=== PATIENT | male | born 1940 | race Caucasian/White ===

== ENCOUNTER 2018-08-15 19:34 | Inpatient (IN) | payer OTHER ==
[~2018-08-15] VITALS: Ht 162.6 cm; Wt 78.5 kg
[2018-08-15 20:40] VITALS: BP 162/83; PULSE 70; RESP 18
--- NOTE | 2018-08-15 21:43 | HP ---
Date/Time of Note Date/Time of Note DATE: 08/15/18 TIME: 21:43 Assessment/Plan VTE Prophylaxis SCD applied (from Nsg): Yes Pharmacological prophylaxis: NA/contraindicated Pharm contraindication: low risk/ambulating Assessment/Plan Hospital Course This is a 78-year-old male being admitted to the telemetry floor for: #1 headache with unsteady gait: Patient CT imaging studies are negative for any acute abnormalities. Patient unfortunately is unable to get an MRI as he does have a pacemaker. At the current time he does report improvement in his headache. He does report mild dizziness still. Gait was not assessed as patient reports that he is tired. Will get a PT evaluation. Will obtain a carotid Doppler ultrasound as well as echocardiogram, chest x-ray. Will check orthostatics. Will check hemoglobin A1c, lipid panel, TSH. Cranial nerves II through XII intact, speech normal. Will consult neurology . Tylmary beth for headache. #2 musculoskeletal pain: Patient does report pain of his neck muscles/trapezius. We will give him a dose of Toradol 50 mg IV x1. #3 hypertension: Patient does not recall a blood pressure medication he is at home. I will start him on lisinopril 10 mg p.o. daily. Will monitor patient's blood pressure. #4 borderline obesity: We will check hemoglobin A1c, lipid panel, TSH #5 DVT GI prophylaxis: SCDs, no GI prophylaxis indicated Further treatment strategy will be implemented as per the clinical course. HPI/ROS Admit Date/Time Admit Date/Time Aug 15, 2018 at 20:20 Hx of Present Illness Chief complaint: Dizziness, headache Patient is a poor historian. This is a 78-year-old male with a past medical history of diabetes mellitus and hypertension who originally presented to [facility] with complaints of headache and dizziness. He had originally reported that 2 days prior to presentation at [place] he had experienced a headache that was sudden onset in nature is nontraumatic and it was in the occipital region of his head. He reported the pain was throbbing and constant and he rated as a 9 out of 10. He has continued to have dizziness and feeling unsteady on his feet. He denies any nausea vomiting or diarrhea. Pertinent vitals on presentation: Temperature 97.8/pulse 70/respirations 24/blood pressure 161/91/SPO2 98% on room air. Please see chart for further laboratory results. Upon arriving to [facility] patient reports that his headache is improved. He does still feel some dizziness. Pertinent laboratory findings from transfer facility include creatinine of 1.19 please see chart for further details. CT angiogram of the neck with contrast which showed bilateral carotid arteries of normal caliber. Normal carotid bifurcation to demonstrate bilateral. Bilateral internal carotid arteries are of normal,. No hemodynamically significant stenosis using the NASCET criteria. CT head without contrast: No evidence of acute intracranial abnormality. No evidence of hemorrhage, mass, or mass-effect. Mild generalized central and cortical atrophy. Areas of hypoattenuation in the periventricular and deep white matter suggestive of chronic small vessel ischemic change. Small posterior fossa cystic attenuation likely a cyst and stable examination measuring [address] angiogram head with contrast: No acute intracranial abnormality. Patient is EKG was normal sinus rhythm atrially paced at 70 bpm. ROS Const: As per HPI Eyes : No pain discharge or redness or change in visual acuity ENT: No pain, sore throat, congestion, congestion, dysphagia or discharge Respiratory: No shortness of breath, cough, sputum, wheezing, or pleuritic pain Cardiovascular: No chest pain, palpitation, PND, or edema GI : no change in appetite, abdominal pain, nausea, vomiting, diarrhea, co nstipation, or change in the color his stool Genitourinary: No dysuria, hematuria, flank pain , discharge or CVA tenderness Musculoskeletal: No joint pain, back pain, neck pain, restricted range of motion in neck or joints Skin: No rash, bruising or hives Neuro: As per HPI Endocrine: No polyuria, polydipsia, temperature intolerance Psych: No hallucination, depression, anxiety or suicidal ideation PMH/Family/Social Past Medical History Hypertension Medications Current Medications IV Flush (NS 3 ml) 3 ml PER PROTOCOL IV ; Start 08/15/18 at 22:00; Status UNV Ondansetron HCl (Zofran Inj) 4 mg Q6H PRN IV NAUSEA/VOMITING; Start 08/15/18 at 22:00; Status UNV Acetaminophen (Tylenol Tab) 650 mg Q6H PRN PO .PAIN 1-3 OR TEMP; Start 08/15/18 at 22:00; Status UNV Docusate Sodium (Colace) 100 mg Q12H PRN PO .CONSTIPATION; Start 08/15/18 at 22:00; Status UNV Bisacodyl (Dulcolax) 5 mg DAILY PRN PO .CONSTIPATION; Start 08/15/18 at 22:00; Status UNV Coded Allergies: No Known Allergy (Unverified , 08/15/18) Past Surgical History Pacemaker placement Family History Significant Family History: no pertinent family hx Social History Alcohol Use: occasionally Smoking Status: Never smoker Drug Use: none Exam/Review of Systems Exam Exam General: Patient is a pleasant male currently lying in bed in no acute distress HEENT: Atraumatic, normocephalic. The pupils are equal, round and reactive. Extraocular motor are intact Neck: Supple with full range of motion. No rigidity or meningismus Chest: Nontender to palpation Lungs: Clear to auscultation bilaterally no crackles rales or wheezing Heart: Normal S1-S2, Regular rhythm and rate. No murmur, S3, or S4 Abdomen: Soft , nontender, nondistended , bowel sounds are present. No guarding no rebound tenderness , No masses or organomegaly. No costovertebral temporal angle mass Extremities: Normal to inspection, no edema no cyanosis Musculoskeletal: Tender to palpation along the trapezius muscles Neurologic: Normal mental status, speech normal, cranial nerves II through XII are intact, motor and sensory are intact, gait not assessed as patient reports that he is tired. SUNNI RAMOS Aug 15, 2018 21:43
[2018-08-15] MEDS ORDERED: DOCUSATE SODIUM 100 MG CAP PO PRN (22:00)
[2018-08-15] MEDS ORDERED: NACL 0.9% 3 ML SYG IV SCH (22:00)
[2018-08-15] MEDS ORDERED: BISACODYL (EC) 5 MG TAB PO PRN (22:00)
[2018-08-15] MEDS ORDERED: ONDANSETRON 4 MG INJ IV PRN (22:00)
[2018-08-16] VITALS (7 sets, daily range): BP systolic 133–175; BP diastolic 71–83; PULSE 40–71; RESP 17–18; Ht 162.6 cm; Wt 78.5 kg
[2018-08-16] MEDS ORDERED: MAGNESIUM SULFATE 2 GM/50 ML 50 ML IVPB ONE ×2 (03:30→14:30)
[2018-08-16] MEDS ORDERED: KETOROLAC 15 MG INJ IV STA (04:32)
[2018-08-16] MEDS ORDERED: LISINOPRIL 10 MG TAB PO SCH (09:00)
[2018-08-16] MEDS ORDERED: ATOR20TA38 PO (10:26)
[2018-08-16] MEDS ORDERED: ATEN50TA PO (10:29)
[2018-08-16] MEDS ORDERED: BENA20TA4 PO (10:29)
[2018-08-16] MEDS ORDERED: GLIM4TAB55 PO (10:29)
[2018-08-16] MEDS ORDERED: METF100010 PO (10:29)
[2018-08-16] MEDS ORDERED: LANT3I SC (10:30)
--- NOTE | 2018-08-16 13:18 | CONSI ---
Assessment/Plan Assessment/Plan Assessment/Plan (Recall) 78 M c/ cerebrovascular risk factors, who presents for evaluation of headache and dizziness.. The clinical picture is most ominously concerning for posterior circulation stroke.. Basilar migraine is possible... Hypertensive urgency is additionally considered.. OSH Head CT was reportedly without obvious acute intracranial pathology OSH CTA Head and Neck were reportedly normal MRI brain is contraindicated 2/2 pacemaker P: Repeat head CT in the evening to eval for interval change Await echocardiogram Start asa/lipitor daily for now Add ESR, RPR Add meclizine Other medical management per primary (avoid Triptans, Ergotamines) PT/OT/ST as necessary Will follow clinically Consultation Date/Type/Reason Admit Date/Time Aug 15, 2018 at 20:20 Type of Consult Neurology Reason for Consultation dizziness, headache Requesting Provider: SUNNI RAMOS Date/Time of Note DATE: 08/16/18 TIME: 13:09 Hx of Present Illness This is a 78-year-old male with a past medical history of diabetes mellitus and hypertension who originally presented to [facility] with complaints of headache and dizziness. He had originally reported that 2 days prior to presentation at [place] he had experienced a headache that was sudden onset in nature is nontraumatic and it was in the occipital region of his head. He reported the pain was throbbing and constant and he rated as a 9 out of 10. He has continued to have dizziness and feeling unsteady on his feet. He denies any nausea vomiting or diarrhea. Pertinent vitals on presentation: Temperature 97.8/pulse 70/respirations 24/blood pressure 161/91/SPO2 98% on room air. Please see chart for further laboratory results. Upon arriving to [facility] patient reports that his headache is improved. He does still feel some dizziness. Pertinent laboratory findings from transfer facility include creatinine of 1.19 please see chart for further details. CT angiogram of the neck with contrast which showed bilateral carotid arteries of normal caliber. Normal carotid bifurcation to demonstrate bilateral. Bilateral internal carotid arteries are of normal,. No hemodynamically significant stenosis using the NASCET criteria. CT head without contrast: No evidence of acute intracranial abnormality. No evidence of hemorrhage, mass, or mass-effect. Mild generalized central and cortical atrophy. Areas of hypoattenuation in the periventricular and deep white matter suggestive of chronic small vessel ischemic change. Small posterior fossa cystic attenuation likely a cyst and stable examination measuring [address] angiogram head with contrast: No acute intracranial abnormality. Patient is EKG was normal sinus rhythm atrially paced at 70 bpm. o/w neg Objective Exam Vitals Vital Signs Date Temp Pulse Resp B/P (MAP) Pulse Ox O2 O2 Flow FiO2 Time Delivery Rate 08/16/18 70 175/83 11:36 (113) 156/80 (105) 08/16/18 98.0 17 92 11:25 Intake and Output 08/15/18 08/15/18 08/16/18 1515:00 23:00 07:00 OutputOutput Total 200 ml 450 ml BalanceBalance -200 ml -450 ml Exam PE: Gen Appearance: No Apparent Distress HEENT: Normocephalic Cardiovascular: Regular rate Lungs: Clear bilaterally Abdomen: Soft Extremities: Dry NE: The patient was alert and oriented. Language was normal. Fund of knowledge was normal. Pupils were equal and reactive to light. There was no afferent pupillary defect. Visual landis were normal. Funduscopic examination was limited. Extra-ocular movements were full. Ptosis was absent. There was no nystagmus. Facial sensation was normal. Face was symmetric with normal strength. Hearing was intact. Palate movements were normal. Neck strength was normal. There was normal tongue bulk and speed of movement. Tone was normal. Muscle bulk was normal. I did not see fasciculations. Arms and legs were strong. Vibration sensation was normal. Temperature and pinprick sensation was normal. Rapid alternating movements were normal. There was no dysmetria. There was no intention tremor. Gait was deferred due to bedrest. Arm and leg reflexes were symmetric. Duarte's sign was absent. Plantar responses were flexor. Results Result Diagram: 08/16/18 0526 08/16/18 05 Results 24hrs Laboratory Tests Test 08/15/18 22:32 08/16/18 05:26 08/16/18 11:47 White Blood Count 7.0 7.4 Red Blood Count 4.28 L 4.31 L Hemoglobin 13.6 L 13.5 L Hematocrit 39.4 L 40.1 L Mean Corpuscular Volume 92.1 93.0 Mean Corpuscular Hemoglobin 31.8 31.3 Mean Corpuscular Hemoglobin Concent 34.5 33.7 Red Cell Distribution Width 13.5 13.5 Platelet Count 255 245 Mean Platelet Volume 11.3 H 11.5 H Immature Granulocytes % 0.400 0.100 Neutrophils % 51.2 57.3 Lymphocytes % 31.6 27.5 Monocytes % 9.3 8.1 Eosinophils % 6.9 6.5 Basophils % 0.6 0.5 Nucleated Red Blood Cells % 0.0 0.0 Immature Granulocytes # 0.030 0.010 Neutrophils # 3.6 4.2 Lymphocytes # 2.2 2.0 Monocytes # 0.7 0.6 Eosinophils # 0.5 0.5 Basophils # 0.0 0.0 Nucleated Red Blood Cells # 0.0 0.0 Sodium Level 138 140 Potassium Level 4.0 4.3 Chloride Level 106 106 Carbon Dioxide Level 26 26 Anion Gap 6 8 Blood Urea Nitrogen 18 19 Creatinine 0.98 1.08 Est Glomerular Filtrat Rate mL/min Glucose Level 143 147 Calcium Level 8.4 8.5 Magnesium Level 1.6 L 1.5 L Total Bilirubin 0.8 1.0 Direct Bilirubin 0.00 0.00 Indirect Bilirubin 0.8 1.0 Aspartate Amino Transf (AST/SGOT) 28 33 Alanine Aminotransferase (ALT/SGPT) 23 27 Alkaline Phosphatase 97 96 Total Protein 6.5 6.6 Albumin 3.3 3.3 Globulin 3.20 3.30 H Albumin/Globulin Ratio 1.03 1.00 Hemoglobin A1c 7.9 H Triglycerides Level Pending Cholesterol Level 181 LDL Cholesterol, Calculated Pending HDL Cholesterol 28 L Cholesterol/HDL Ratio 6.4 Thyroid Stimulating Hormone (TSH) 2.390 Bedside Glucose 165 Past Medical History reviewed Home Meds Reported Medications Insulin Glargine* (Lantus*) 100 Unit/Ml Soln, 10 UNIT SC QHS, #1 VIAL 08/16/18 Benazepril Hcl* (Benazepril Hcl*) 20 Mg Tablet, 20 MG PO DAILY, #30 TAB 08/16/18 Metformin Hcl* (Metformin Hcl*) 1,000 Mg Tablet, 1000 MG PO WITH BREAKFAST DINNE, #30 TAB 08/16/18 Glimepiride* (Amaryl*) 4 Mg Tablet, 4 MG PO WITH BREAKFAST, TAB 08/16/18 Atenolol* (Atenolol*) 50 Mg Tablet, 50 MG PO DAILY, #30 TAB 08/16/18 Atorvastatin Calcium* (Atorvastatin Calcium*) 20 Mg Tablet, 20 MG PO QHS, #30 TAB 08/16/18 Medications Current Medications IV Flush (NS 3 ml) 3 ml PER PROTOCOL IV ; Start 08/15/18 at 22:00 Ondansetron HCl (Zofran Inj) 4 mg Q6H PRN IV NAUSEA/VOMITING; Start 08/15/18 at 22:00 Acetaminophen (Tylenol Tab) 650 mg Q6H PRN PO .PAIN 1-3 OR TEMP; Start 08/15/18 at 22:00 Docusate Sodium (Colace) 100 mg Q12H PRN PO .CONSTIPATION; Start 08/15/18 at 22:00 Bisacodyl (Dulcolax) 5 mg DAILY PRN PO .CONSTIPATION; Start 08/15/18 at 22:00 Lisinopril (Zestril) 10 mg DAILY PO Last administered on 08/16/18at 09:30; Admin Dose 10 MG; Start 08/16/18 at 09:00 Allergies: Coded Allergies: No Known Allergy (Unverified , 08/15/18) Social History Alcohol Use: occasionally Smoking Status: Never smoker Drug Use: none LAYO RODRIGUEZ Aug 16, 2018 13:18
[2018-08-16] MEDS: ASPIRIN (EC) 81 MG TAB PO SCH (13:44)
--- NOTE | 2018-08-16 14:16 | PN ---
Date/Time of Note Date/Time of Note DATE: 08/16/18 TIME: 14:15 Assessment/Plan VTE Prophylaxis Risk score (from Ns)>0 risk: 4 SCD applied (from Ns): Yes Pharmacological prophylaxis: NA/contraindicated Pharm contraindication: low risk/ambulating Lines/Catheters IV [facility]from [facility] Saline Lock Urinary Cath still in place: No Assessment/Plan Hospital Course SUBJECTIVE: Patient had dizziness with PT evaluation this morning. OBJECTIVE: Vital signs-see below PHYSICAL EXAM: Constitutional: Adequately built,not in acute distress. HEENT: Head atraumatic and normocephalic. Eyes: Extraocular muscles intact. Anicteric sclerae. Pupils equal bilaterally, reactive to light. NECK: Supple without lymph node. CHEST: Clear and good breath sounds equally. No wheezing. No rhonchi. HEART: S1, S2. Regular rate and rhythm. ABDOMEN: Soft/non tender with no rebound tenderness. Bowel sounds were present. EXTREMITIES: No cyanosis, clubbing or edema. NEUROLOGIC: Alert and oriented x3. No focal deficit. No sensory deficit. PSYCHOSOCIAL: No signs of depression. INTEGUMENTARY: No open wounds. ASSESSMENT AND PLAN:78 yo M w/htn,dm2 tx from osh for headaches/diz ziness/feeling unsteady.... Headache/dizziness -No focal deficits. -Patient is not a candidate for brain MRI secondary to pacemaker placed. Being followed by neurologist who suspect posterior circulation stroke versus basilar migraine versus hypertensive urgency... -Follow-up brain CT ordered. CTA head/neck from OSH unrevealing... -Continue ASA/statin -Continue PT HTN -Resume home medications DMII -A1c noted. Basal/bolus insulin Pacemaker placed -w/good fxn DVT prophylaxis: SCDs Disposition: Continue with physical therapy. Case management to arrange home health in front wheel walker. Follow-up neurology recommendations. Patient was seen in collaboration with Dr. Malone. Result Diagram: 08/16/1852508/16/18525 Results 24hrs Laboratory Tests Test 08/15/18 22:32 08/16/18 05:26 08/16/18 11:47 White Blood Count 7.0 7.4 Red Blood Count 4.28 L 4.31 L Hemoglobin 13.6 L 13.5 L Hematocrit 39.4 L 40.1 L Mean Corpuscular Volume 92.1 93.0 Mean Corpuscular Hemoglobin 31.8 31.3 Mean Corpuscular Hemoglobin Concent 34.5 33.7 Red Cell Distribution Width 13.5 13.5 Platelet Count 255 245 Mean Platelet Volume 11.3 H 11.5 H Immature Granulocytes % 0.400 0.100 Neutrophils % 51.2 57.3 Lymphocytes % 31.6 27.5 Monocytes % 9.3 8.1 Eosinophils % 6.9 6.5 Basophils % 0.6 0.5 Nucleated Red Blood Cells % 0.0 0.0 Immature Granulocytes # 0.030 0.010 Neutrophils # 3.6 4.2 Lymphocytes # 2.2 2.0 Monocytes # 0.7 0.6 Eosinophils # 0.5 0.5 Basophils # 0.0 0.0 Nucleated Red Blood Cells # 0.0 0.0 Sodium Level 138 140 Potassium Level 4.0 4.3 Chloride Level 106 106 Carbon Dioxide Level 26 26 Anion Gap 6 8 Blood Urea Nitrogen 18 19 Creatinine 0.98 1.08 Est Glomerular Filtrat Rate mL/min Glucose Level 143 147 Calcium Level 8.4 8.5 Magnesium Level 1.6 L 1.5 L Total Bilirubin 0.8 1.0 Direct Bilirubin 0.00 0.00 Indirect Bilirubin 0.8 1.0 Aspartate Amino Transf (AST/SGOT) 28 33 Alanine Aminotransferase (ALT/SGPT) 23 27 Alkaline Phosphatase 97 96 Total Protein 6.5 6.6 Albumin 3.3 3.3 Globulin 3.20 3.30 H Albumin/Globulin Ratio 1.03 1.00 Hemoglobin A1c 7.9 H Triglycerides Level Pending Cholesterol Level 181 LDL Cholesterol, Calculated Pending HDL Cholesterol 28 L Cholesterol/HDL Ratio 6.4 Thyroid Stimulating Hormone (TSH) 2.390 Bedside Glucose 165 Exam/Review of Systems Exam Vitals Vital Signs Date Temp Pulse Resp B/P (MAP) Pulse Ox O2 O2 Flow FiO2 Time Delivery Rate 08/16/18 70 175/83 11:36 (113) 156/80 (105) 08/16/18 98.0 17 92 11:25 Intake and Output 08/15/18 08/15/18 08/16/18 1515:00 23:00 07:00 OutputOutput Total 200 ml 450 ml BalanceBalance -200 ml -450 ml Results Results 24hrs Laboratory Tests Test 08/15/18 22:32 08/16/18 05:26 08/16/18 11:47 White Blood Count 7.0 7.4 Red Blood Count 4.28 L 4.31 L Hemoglobin 13.6 L 13.5 L Hematocrit 39.4 L 40.1 L Mean Corpuscular Volume 92.1 93.0 Mean Corpuscular Hemoglobin 31.8 31.3 Mean Corpuscular Hemoglobin Concent 34.5 33.7 Red Cell Distribution Width 13.5 13.5 Platelet Count 255 245 Mean Platelet Volume 11.3 H 11.5 H Immature Granulocytes % 0.400 0.100 Neutrophils % 51.2 57.3 Lymphocytes % 31.6 27.5 Monocytes % 9.3 8.1 Eosinophils % 6.9 6.5 Basophils % 0.6 0.5 Nucleated Red Blood Cells % 0.0 0.0 Immature Granulocytes # 0.030 0.010 Neutrophils # 3.6 4.2 Lymphocytes # 2.2 2.0 Monocytes # 0.7 0.6 Eosinophils # 0.5 0.5 Basophils # 0.0 0.0 Nucleated Red Blood Cells # 0.0 0.0 Sodium Level 138 140 Potassium Level 4.0 4.3 Chloride Level 106 106 Carbon Dioxide Level 26 26 Anion Gap 6 8 Blood Urea Nitrogen 18 19 Creatinine 0.98 1.08 Est Glomerular Filtrat Rate mL/min Glucose Level 143 147 Calcium Level 8.4 8.5 Magnesium Level 1.6 L 1.5 L Total Bilirubin 0.8 1.0 Direct Bilirubin 0.00 0.00 Indirect Bilirubin 0.8 1.0 Aspartate Amino Transf (AST/SGOT) 28 33 Alanine Aminotransferase (ALT/SGPT) 23 27 Alkaline Phosphatase 97 96 Total Protein 6.5 6.6 Albumin 3.3 3.3 Globulin 3.20 3.30 H Albumin/Globulin Ratio 1.03 1.00 Hemoglobin A1c 7.9 H Triglycerides Level Pending Cholesterol Level 181 LDL Cholesterol, Calculated Pending HDL Cholesterol 28 L Cholesterol/HDL Ratio 6.4 Thyroid Stimulating Hormone (TSH) 2.390 Bedside Glucose 165 Medications Medication Current Medications IV Flush (NS 3 ml) 3 ml PER PROTOCOL IV ; Start 08/15/18 at 22:00 Ondansetron HCl (Zofran Inj) 4 mg Q6H PRN IV NAUSEA/VOMITING; Start 08/15/18 at 22:00 Acetaminophen (Tylenol Tab) 650 mg Q6H PRN PO .PAIN 1-3 OR TEMP; Start 08/15/18 at 22:00 Docusate Sodium (Colace) 100 mg Q12H PRN PO .CONSTIPATION; Start 08/15/18 at 22:00 Bisacodyl (Dulcolax) 5 mg DAILY PRN PO .CONSTIPATION; Start 08/15/18 at 22:00 Aspirin (Halfprin) 81 mg DAILY PO Last administered on 08/16/18at 13:44; Admin Dose 81 MG; Start 08/16/18 at 13:30 Atorvastatin Calcium (Lipitor) 40 mg HS PO ; Start 08/16/18 at 21:00 Meclizine HCl (Antivert) 12.5 mg TID PO ; Start 08/16/18 at 21:00 Atenolol (Tenormin) 50 mg DAILY PO ; Start 08/17/18 at 09:00; Status UNV Benazepril HCl (Lotensin) 20 mg DAILY PO ; Start 08/17/18 at 09:00; Status UNV Insulin Glargine (Lantus) 10 units QHS SC ; Start 08/16/18 at 21:00; Status UNV WENDY CASTREJON NP Aug 16, 2018 14:16
--- NOTE | 2018-08-16 16:41 | RADRPT ---
Echocardiogram Report Patient Name: Speedy CONNER ID: [id number] : [id number] (78y 7m)Study Date: 08/16/2018 8:29:19 AM Gender: Greggcession #: [id number] Tech: Robin Cuevas [facility] Location: [facility] Ref.Physician: SUNNI RAMOS Height(Cm): BSA: Weight(Kg): Quality: Technically Difficult StudyOrder Physician: SUNNI ARMOS Account #: Procedures: Echocardiographic Report: Transthoracic echocardiogram with complete 2D, M-Mode, and doppler examination. Indications: NEAR SYNCOPE. Measurements: 2D/M Mode Doppler Measurement Value Normal Range Measurement Value Normal Range LVIDd 2D 4.6 [ 4.2 - 5.8 ] cm AV Peak Carson 1.4 [ 100.0 - 170.0 ] cm/sec LVIDs 2D 3.3 [ 2.5 - 4.0 ] cm AV Peak PG 7.0 [ 2.0 - 9.0 ] mmHg LVPWd 2D 1.0 [ 0.6 - 1.0 ] cm LVOT Peak Carson 0.9 [ 70.0 - 110.0 ] cm/sec IVSd 2D 1.1 [ 0.6 - 1.0 ] cm LVOT Peak PG 3.0 [ 2.0 - 6.0 ] mmHg AoR Diam 2D 3.0 [ 2.6 - 3.4 ] cm MV E Peak Carson 0.5 [ 60.0 - 130.0 ] cm/sec EDV 2D 95.4 [ 62.0 - 150.0 ] ml MV A Peak Carson 0.9 [ 100.0 - 120.0 ] cm/sec ESV 2D 45.1 [ 21.0 - 61.0 ] ml MV E/A 0.5 [ 0.8 - 1.5 ] ratio EF 2D 52.7 [ 52.0 - 72.0 ] percent MV Decel Time 211 [ 104 - 258 ] msec LA Dimen 2D 3.9 [ 3.0 - 4.0 ] cm Lat E` Carson 0.1 [ 10.0 - 15.0 ] cm/sec Lateral E/E` 6.5 [ 1.0 - 2.0 ] ratio Med E` Carson 0.1 cm/sec MV E/A 0.5 [ 0.8 - 1.5 ] ratio TR Peak Carson 2.4 [ 100.0 - 280.0 ] cm/sec TR Peak PG 24.0 mmHg RVSP 27.0 [ 10.0 - 36.0 ] mmHg Findings: Left Ventricle: Normal left ventricular systolic function. Normal left ventricular cavity size. Sigmoid septum. Ejection fraction is visually estimated at 55 %. Tissue Doppler/Mitral Doppler indices are consistent with impaired relaxation (Stage I diastolic dysfunction). Right Ventricle: Normal right ventricular size. Normal right ventricular systolic function. Left Atrium: The left atrium is normal in size. Right Atrium: The right atrium is normal in size. Atrial Septum: Bubble study was performed with and with out valsalva indicating no evidence of intra atrial shunt. Mitral Valve: Mild mitral leaflet calcification. Mild mitral annular calcification. Trace mitral regurgitation. Aortic Valve: No significant aortic stenosis or insufficiency. Aortic cusps appear mildly calcified. Tricuspid Valve: Normal appearance and function of the tricuspid valve with trace physiologic regurgitation. The estimated Peak RVSP is 27 mmHg. Pericardium: Normal pericardium with no significant pericardial effusion. Aorta: Normal aortic root. IVC: Normal size and normal respiratory collapse consistent with normal right atrial pressure. Conclusions: Normal left ventricular systolic function. Normal left ventricular cavity size. Sigmoid septum. Ejection fraction is visually estimated at 55 %. Tissue Doppler/Mitral Doppler indices are consistent with impaired relaxation (Stage I diastolic dysfunction). Normal right ventricular size. Normal right ventricular systolic function. The left atrium is normal in size. The right atrium is normal in size. No significant valvular stenosis or regurgitation seen. Normal pericardium with no significant pericardial effusion. Bubble study was performed with and with out valsalva indicating no evidence of intra atrial shunt. Electronically Signed By: Luis Do 2018-08-16 16:40:47 PDT
[2018-08-16] MEDS: INSULIN ASPART [NOVOLOG] 3 ML PEN SC SCH ×3 (17:22→21:00)
[2018-08-16] MEDS: ATORVASTATIN 40 MG TAB PO SCH (21:25)
[2018-08-16] MEDS: MECLIZINE 12.5 MG TAB PO SCH (21:25)
[2018-08-16] MEDS: INSULIN GLARGINE [LANTus] (100 UNITS/ML) SYG SC SCH (21:28)
[2018-08-17] VITALS (8 sets, daily range): BP systolic 114–197; BP diastolic 56–104; PULSE 69–72; RESP 18–20
[2018-08-17] MEDS: ACCU-CHEK XX SCH (02:00)
[2018-08-17] MEDS: ACETAMINOPHEN 325 MG TAB PO PRN (07:19)
[2018-08-17] MEDS: INSULIN ASPART [NOVOLOG] 3 ML PEN SC SCH ×7 (07:33→22:41)
[2018-08-17] MEDS: ASPIRIN (EC) 81 MG TAB PO SCH (08:32)
[2018-08-17] MEDS: MECLIZINE 12.5 MG TAB PO SCH ×3 (08:32→22:33)
[2018-08-17] MEDS: BENAZEPRIL 20 MG TAB PO SCH (08:33)
[2018-08-17] MEDS: ATENOLOL 50 MG TAB PO SCH (08:33)
--- NOTE | 2018-08-17 11:41 | PN ---
Date/Time of Note Date/Time of Note DATE: 08/17/18 TIME: 11:38 Assessment/Plan VTE Prophylaxis Risk score (from Ns)>0 risk: 4 SCD applied (from Ns): Yes Pharmacological prophylaxis: NA/contraindicated Pharm contraindication: low risk/ambulating Lines/Catheters IV C[facility]ter Type [facility]from [facility] Saline Lock Urinary Cath still in place: No Assessment/Plan Hospital Course SUBJECTIVE:no acute episodes OBJECTIVE: Vital signs-see below PHYSICAL EXAM: Constitutional: Adequately built,not in acute distress. HEENT: Head atraumatic and normocephalic. Eyes: Extraocular muscles intact. Anicteric sclerae. Pupils equal bilaterally, reactive to light. NECK: Supple without lymph node. CHEST: Clear and good breath sounds equally. No wheezing. No rhonchi. HEART: S1, S2. Regular rate and rhythm. ABDOMEN: Soft/non tender with no rebound tenderness. Bowel sounds were present. EXTREMITIES: No cyanosis, clubbing or edema. NEUROLOGIC: Alert and oriented x3. No focal deficit. No sensory deficit. PSYCHOSOCIAL: No signs of depression. INTEGUMENTARY: No open wounds. ASSESSMENT AND PLAN:78 yo M w/htn,dm2 tx from osh for headaches/dizziness/feeling unsteady.... Headache/dizziness -No focal deficits. -Patient is not a candidate for brain MRI secondary to pacemaker placed. Being followed by neurologist who suspect posterior circulation stroke versus basilar migraine versus hypertensive urgency... - CTA head/neck from OSH unrevealing...Repeat CT brain unrevealing... -Continue ASA/statin -Continue PT -f/u neuro recs HTN -stable. cont. home medications DMII -stable sugars. Basal/bolus insulin Pacemaker placed -w/good fxn DVT prophylaxis: SCDs Disposition: Continue with physical therapy. Case management to arrange home health in front wheel walker. DC when cleared from neuro. Patient was seen in collaboration with Dr. Malone. Result Diagram: 08/17/18 0545 08/17/18 0545 Results 24hrs Laboratory Tests Test 08/16/18 11:47 08/16/18 15:16 08/16/18 17:02 08/16/18 21:23 Bedside Glucose 165 201 119 Erythrocyte 28 H Sedimentation Rate Test 08/17/18 05:45 08/17/18 07:33 White Blood Count 8.0 Red Blood Count 4.50 L Hemoglobin 14.0 Hematocrit 41.5 L Mean Corpuscular 92.2 Volume Mean Corpuscular 31.1 Hemoglobin Mean Corpuscular 33.7 Hemoglobin Concent Red Cell 13.2 Distribution Width Platelet Count 256 Mean Platelet Volume 11.5 H Immature 0.300 Granulocytes % Neutrophils % 55.8 Lymphocytes % 28.4 Monocytes % 8.2 Eosinophils % 6.8 Basophils % 0.5 Nucleated Red Blood 0.0 Cells % Immature 0.020 Granulocytes # Neutrophils # 4.5 Lymphocytes # 2.3 Monocytes # 0.7 Eosinophils # 0.5 Basophils # 0.0 Nucleated Red Blood 0.0 Cells # Sodium Level 139 Potassium Level 4.1 Chloride Level 105 Carbon Dioxide Level 27 Anion Gap 7 Blood Urea Nitrogen 26 H Creatinine 1.13 Est Glomerular Filtrat Rate mL/min Glucose Level 67 #L Calcium Level 8.6 Magnesium Level 2.1 Total Bilirubin 1.0 Direct Bilirubin 0.00 Indirect Bilirubin 1.0 Aspartate Amino 25 Transf (AST/SGOT) Alanine 23 Aminotransferase (AL T/SGPT) Alkaline Phosphatase 90 Total Protein 6.5 Albumin 3.3 Globulin 3.20 Albumin/Globulin 1.03 Ratio Bedside Glucose 74 Exam/Review of Systems Exam Vitals Vital Signs Date Temp Pulse Resp B/P (MAP) Pulse Ox O2 O2 Flow FiO2 Time Delivery Rate 08/17/18 140/79 11:00 (99) 197/104 (135) 139/67 (91) 08/17/18 97.4 70 19 92 07:41 Intake and Output 08/16/18 08/16/18 08/17/18 1515:00 23:00 07:00 IntakeIntake Total 650 ml OutputOutput Total 200 ml 300 ml 750 ml BalanceBalance 450 ml -300 ml -750 ml Results Results 24hrs Laboratory Tests Test 08/16/18 11:47 08/16/18 15:16 08/16/18 17:02 08/16/18 21:23 Bedside Glucose 165 201 119 Erythrocyte 28 H Sedimentation Rate Test 08/17/18 05:45 08/17/18 07:33 White Blood Count 8.0 Red Blood Count 4.50 L Hemoglobin 14.0 Hematocrit 41.5 L Mean Corpuscular 92.2 Volume Mean Corpuscular 31.1 Hemoglobin Mean Corpuscular 33.7 Hemoglobin Concent Red Cell 13.2 Distribution Width Platelet Count 256 Mean Platelet Volume 11.5 H Immature 0.300 Granulocytes % Neutrophils % 55.8 Lymphocytes % 28.4 Monocytes % 8.2 Eosinophils % 6.8 Basophils % 0.5 Nucleated Red Blood 0.0 Cells % Immature 0.020 Granulocytes # Neutrophils # 4.5 Lymphocytes # 2.3 Monocytes # 0.7 Eosinophils # 0.5 Basophils # 0.0 Nucleated Red Blood 0.0 Cells # Sodium Level 139 Potassium Level 4.1 Chloride Level 105 Carbon Dioxide Level 27 Anion Gap 7 Blood Urea Nitrogen 26 H Creatinine 1.13 Est Glomerular Filtrat Rate mL/min Glucose Level 67 #L Calcium Level 8.6 Magnesium Level 2.1 Total Bilirubin 1.0 Direct Bilirubin 0.00 Indirect Bilirubin 1.0 Aspartate Amino 25 Transf (AST/SGOT) Alanine 23 Aminotransferase (AL T/SGPT) Alkaline Phosphatase 90 Total Protein 6.5 Albumin 3.3 Globulin 3.20 Albumin/Globulin 1.03 Ratio Bedside Glucose 74 Medications Medication Current Medications IV Flush (NS 3 ml) 3 ml PER PROTOCOL IV ; Start 08/15/18 at 22:00 Ondansetron HCl (Zofran Inj) 4 mg Q6H PRN IV NAUSEA/VOMITING; Start 08/15/18 at 22:00 Acetaminophen (Tylenol Tab) 650 mg Q6H PRN PO .PAIN 1-3 OR TEMP Last administered on 08/17/18at 07:19; Admin Dose 650 MG; Start 08/15/18 at 22:00 Docusate Sodium (Colace) 100 mg Q12H PRN PO .CONSTIPATION; Start 08/15/18 at 22:00 Bisacodyl (Dulcolax) 5 mg DAILY PRN PO .CONSTIPATION; Start 08/15/18 at 22:00 Aspirin (Halfprin) 81 mg DAILY PO Last administered on 08/17/18at 08:32; Admin Dose 81 MG; Start 08/16/18 at 13:30 Atorvastatin Calcium (Lipitor) 40 mg HS PO Last administered on 08/16/18at 21:25; Admin Dose 40 MG; Start 08/16/18 at 21:00 Meclizine HCl (Antivert) 12.5 mg TID PO Last administered on 08/17/18at 08:32; Admin Dose 12.5 MG; Start 08/16/18 at 21:00 Atenolol (Tenormin) 50 mg DAILY PO Last administered on 08/17/18 08:33; Admin Dose 50 MG; Start 08/17/18 at 09:00 Benazepril HCl (Lotensin) 20 mg DAILY PO Last administered on 08/17/18 08:33; Admin Dose 20 MG; Start 08/17/18 at 09:00 Insulin Glargine (Lantus) 10 units QHS SC Last administered on 08/16/18 21:28; Admin Dose 10 UNITS; Start 08/16/18 at 21:00 Diagnostic Test (Pha) (Accu-Chek) 1 ea 02 XX Last administered on 08/17/18 02:00; Admin Dose 1 EA; Start 08/17/18 at 02:00 Insulin Aspart (Novolog Insulin Pen) 4 unit WITH MEALS SC Last administered on 08/17/18 07:35; Admin Dose 4 UNIT; Start 08/16/18 at 18:00 Insulin Aspart (Novolog Insulin Pen) NOVOLOG *MILD* ALGORITHM WITH MEALS BEDTIME SC Last administered on 08/16/18 17:22; Admin Dose 2 UNIT; Start 08/16/18 at 18:00 WENDY CASTREJON NP Aug 17, 2018 11:41
--- NOTE | 2018-08-17 15:44 | CONS ---
Assessment/Plan Assessment/Plan Assessment/Plan (Recall) 78 M c/ cerebrovascular risk factors, who presents for evaluation of headache and dizziness.. The clinical picture is most ominously concerning for posterior circulation stroke.. Basilar migraine is possible... Hypertensive urgency is additionally considered.. OSH Head CT was reportedly without obvious acute intracranial pathology OSH CTA Head and Neck were reportedly normal Repeat Head CT is stable from prior.. TTE was unrevealing MRI brain is contraindicated 2/2 pacemaker LDL 120; A1C 7.9% RPR neg ESR 28 P: Cont asa/lipitor daily for now Continue low-dose meclizine Other medical management per primary (avoid Triptans, Ergotamines) PT/OT/ST as necessary Will follow clinically Consultation Date/Type/Reason Admit Date/Time Aug 16, 2018 at 14:18 Type of Consult Neurology Reason for Consultation dizziness, headache Requesting Provider: SUNNI RAMOS Date/Time of Note DATE: 08/17/18 TIME: 15:42 24 HR Interval Summary Free Text/Dictation Notes symptomatic improvement w/ meclizine Exam/Review of Systems Exam Vitals Vital Signs Date Temp Pulse Resp B/P (MAP) Pulse Ox O2 O2 Flow FiO2 Time Delivery Rate 08/17/18 98.2 69 20 152/74 92 11:55 (100) 136/75 (95) 149/80 (103) Intake and Output 08/16/18 08/16/18 08/17/18 1515:00 23:00 07:00 IntakeIntake Total 650 ml OutputOutput Total 200 ml 300 ml 750 ml BalanceBalance 450 ml -300 ml -750 ml Results Result Diagram: 08/17/18 0545 08/17/18 0545 Results 24hrs Laboratory Tests Test 08/16/18 17:02 08/16/18 21:23 08/17/18 05:45 08/17/18 07:33 Bedside Glucose 201 119 74 White Blood Count 8.0 Red Blood Count 4.50 L Hemoglobin 14.0 Hematocrit 41.5 L Mean Corpuscular 92.2 Volume Mean Corpuscular 31.1 Hemoglobin Mean Corpuscular 33.7 Hemoglobin Concent Red Cell 13.2 Distribution Width Platelet Count 256 Mean Platelet Volume 11.5 H Immature 0.300 Granulocytes % Neutrophils % 55.8 Lymphocytes % 28.4 Monocytes % 8.2 Eosinophils % 6.8 Basophils % 0.5 Nucleated Red Blood 0.0 Cells % Immature 0.020 Granulocytes # Neutrophils # 4.5 Lymphocytes # 2.3 Monocytes # 0.7 Eosinophils # 0.5 Basophils # 0.0 Nucleated Red Blood 0.0 Cells # Sodium Level 139 Potassium Level 4.1 Chloride Level 105 Carbon Dioxide Level 27 Anion Gap 7 Blood Urea Nitrogen 26 H Creatinine 1.13 Est Glomerular Filtrat Rate mL/min Glucose Level 67 #L Calcium Level 8.6 Magnesium Level 2.1 Total Bilirubin 1.0 Direct Bilirubin 0.00 Indirect Bilirubin 1.0 Aspartate Amino 25 Transf (AST/SGOT) Alanine 23 Aminotransferase (AL T/SGPT) Alkaline Phosphatase 90 Total Protein 6.5 Albumin 3.3 Globulin 3.20 Albumin/Globulin 1.03 Ratio Test 08/17/18 11:59 Bedside Glucose 112 Medications Medication Current Medications IV Flush (NS 3 ml) 3 ml PER PROTOCOL IV ; Start 08/15/18 at 22:00 Ondansetron HCl (Zofran Inj) 4 mg Q6H PRN IV NAUSEA/VOMITING; Start 08/15/18 at 22:00 Acetaminophen (Tylenol Tab) 650 mg Q6H PRN PO .PAIN 1-3 OR TEMP Last ad ministered on 08/17/18at 07:19; Admin Dose 650 MG; Start 08/15/18 at 22:00 Docusate Sodium (Colace) 100 mg Q12H PRN PO .CONSTIPATION; Start 08/15/18 at 22:00 Bisacodyl (Dulcolax) 5 mg DAILY PRN PO .CONSTIPATION; Start 08/15/18 at 22:00 Aspirin (Halfprin) 81 mg DAILY PO Last administered on 08/17/18at 08:32; Admin Dose 81 MG; Start 08/16/18 at 13:30 Atorvastatin Calcium (Lipitor) 40 mg HS PO Last administered on 08/16/18at 21:25; Admin Dose 40 MG; Start 08/16/18 at 21:00 Meclizine HCl (Antivert) 12.5 mg TID PO Last administered on 08/17/18at 12:06; Admin Dose 12.5 MG; Start 08/16/18 at 21:00 Atenolol (Tenormin) 50 mg DAILY PO Last administered on 08/17/18at 08:33; Admin Dose 50 MG; Start 08/17/18 at 09:00 Benazepril HCl (Lotensin) 20 mg DAILY PO Last administered on 08/17/18 08:33; Admin Dose 20 MG; Start 08/17/18 at 09:00 Insulin Glargine (Lantus) 10 units QHS SC Last administered on 08/16/18at 21:28; Admin Dose 10 UNITS; Start 08/16/18 at 21:00 Diagnostic Test (Pha) (Accu-Chek) 1 ea 02 XX Last administered on 08/17/18at 02:00; Admin Dose 1 EA; Start 08/17/18 at 02:00 Insulin Aspart (Novolog Insulin Pen) 4 unit WITH MEALS SC Last administered on 08/17/18 12:01; Admin Dose 4 UNIT; Start 08/16/18 at 18:00 Insulin Aspart (Novolog Insulin Pen) NOVOLOG *MILD* ALGORITHM WITH MEALS BEDTIME SC Last administered on 08/16/18 17:22; Admin Dose 2 UNIT; Start 08/16/18 at 18:00 LAYO RODRIGUEZ Aug 17, 2018 15:44
[2018-08-17] MEDS: ATORVASTATIN 40 MG TAB PO SCH (22:33)
[2018-08-17] MEDS: INSULIN GLARGINE [LANTus] (100 UNITS/ML) SYG SC SCH (22:35)
[2018-08-18] MEDS: ACCU-CHEK XX SCH (02:00)
[2018-08-18 03:42] VITALS: BP 133/73; PULSE 73; RESP 18
[2018-08-18 07:30] VITALS: BP 134/78; PULSE 71; RESP 16
[2018-08-18] MEDS: INSULIN ASPART [NOVOLOG] 3 ML PEN SC SCH ×4 (07:55→12:42)
[2018-08-18] MEDS: ASPIRIN (EC) 81 MG TAB PO SCH (09:33)
[2018-08-18] MEDS: BENAZEPRIL 20 MG TAB PO SCH (09:34)
[2018-08-18] MEDS: MECLIZINE 12.5 MG TAB PO SCH ×2 (09:34→15:27)
[2018-08-18] MEDS: ATENOLOL 50 MG TAB PO SCH (09:34)
[2018-08-18 11:20] VITALS: BP 132/78; PULSE 70; RESP 18
--- NOTE | 2018-08-18 14:12 | PDOCDIS ---
Discharge Instructions CONDITION [id number] Patient Condition: [id number] Stable HOME CARE INSTRUCTIONS: [id number] Your diet recommendation is: [id number] carbohydrate controlled/low-cholesterol/low-fat diet FOLLOW UP/APPOINTMENTS Follow-up Plan Follow-up with primary care physician in 1 week. WENDY CASTREJON NP Aug 18, 2018 14:12
[2018-08-18] MEDS ORDERED: MECL12.574 PO (14:16)
[2018-08-18] MEDS ORDERED: ATOR40TA68 PO (14:16)
[2018-08-18] MEDS ORDERED: ASPI-1044 PO (14:16)
--- NOTE | 2018-08-18 14:22 | DS ---
Date/Time of Note Date/Time of Note DATE: 08/18/18 TIME: 14:19 Discharge Summary Admission/Discharge Info Admit Date/Time Aug 16, 2018 at 14:18 Discharge Date/Time Discharge Diagnosis Headache/dizziness, questionable posterior circulation stroke versus complex migraine. HTN DMII Pacemaker placed Patient Condition: Stable Consults Procedures Brain CT 08/17/2018: IMPRESSION: 1. Mild diffuse atrophy. 2. Microangiopathic ischemic changes. Carotid ultrasound 08/17/2018: No evidence for hemodynamically significant stenosis in the bilateral internal carotid arteries. 08/25/2018: 2D echocardiogram Conclusions: Normal left ventricular systolic function. Normal left ventricular cavity size. Sigmoid septum. Ejection fraction is visually estimated at 55 %. Tissue Doppler/Mitral Doppler indices are consistent with impaired relaxation (Stage I diastolic dysfunction). Normal right ventricular size. Normal right ventricular systolic function. The left atrium is normal in size. The right atrium is normal in size. No significant valvular stenosis or regurgitation seen. Normal pericardium with no significant pericardial effusion. Bubble study was performed with and with out valsalva indicating no evidence of intra atrial shunt. Electronically Signed By: Luis Do 2018-08-16 16:40:47 PDT Hospital Course 78 yo M w/htn,dm2 tx from osh for headaches/dizziness/feeling unsteady.... Patient did not have any focal deficit. He was being followed by neurologist. Brain CT with no acute infarct, however there is evidence of Microangiopathic ischemic changes.unfortunately, he was not a candidate for brain MRI secondary to pacemaker placed. He was continued on aspirin and high intensity statin as his symptoms are concerning for posterior circulation stroke. Patient also did respond to low-dose meclizine. So at this time, since we cannot exclude stroke as he cannot go for MRI, he was recommended to continue aspirin and statin. Patient was continued on home medication for comorbidities. He was being evaluated by physical therapist. He did not have any further dizziness. Patient was recommended home health with a front wheel walker which was arranged. At this time, patient is feeling back to baseline. He is very eager to be discharged home. Patient to follow-up with primary care physician. Approximately 60-minute was spent on coordinating the discharge on this patient. Patient was seen in collaboration with Dr. Malone. Home Meds Active Scripts Meclizine Hcl* (Antivert*) 12.5 Mg Tab, 12.5 MG PO TID PRN for DIZZINESS, #30 TAB Prov:CASTREJONWENDY V. SUPERINTENDENT RECREATION 08/18/18 Aspirin Delayed Release (Aspirin Delayed Release) 81 Mg Tablet.dr, 81 MG PO DAILY, #30 TAB Prov:CASTREJONVASILEWENDY V. SUPERINTENDENT RECREATION 08/18/18 Atorvastatin* (Atorvastatin*) 40 Mg Tablet, 40 MG PO HS, #30 TAB Prov:CASTREJONVASILEWENDY V. SUPERINTENDENT RECREATION 08/18/18 Reported Medications Insulin Glargine* (Lantus*) 100 Unit/Ml Soln, 10 UNIT SC QHS, #1 VIAL 08/16/18 Benazepril Hcl* (Benazepril Hcl*) 20 Mg Tablet, 20 MG PO DAILY, #30 TAB 08/16/18 Metformin Hcl* (Metformin Hcl*) 1,000 Mg Tablet, 1000 MG PO WITH BREAKFAST DINNE, #30 TAB 08/16/18 Glimepiride* (Amaryl*) 4 Mg Tablet, 4 MG PO WITH BREAKFAST, TAB 08/16/18 Atenolol* (Atenolol*) 50 Mg Tablet, 50 MG PO DAILY, #30 TAB 08/16/18 Atorvastatin Calcium* (Atorvastatin Calcium*) 20 Mg Tablet, 20 MG PO QHS, #30 TAB 08/16/18 Follow-up Plan Follow-up with primary care physician in 1 week. Primary Care Provider Not On Staff Doctor Pending Labs Laboratory Tests Test 08/17/18 16:59 08/17/18 22:25 08/18/18 03:24 08/18/18 05:20 Bedside 231 335 171 Glucose mg/dL (70-220) mg/dL (70-220) mg/dL (70-220) White Blood 8.1 Count 10^3/ul (4.8-1 0.8) Red Blood 4.54 Count 10^6/ul (4.70- 6.10) Hemoglobin 14.0 g/dl (14.0-18. 0) Hematocrit 41.7 % (42.0-52.0) Mean 91.9 Corpuscular fl (82.0-101.0 Volume ) Mean 30.8 Corpuscular pg (29.0-33.0) Hemoglobin Mean 33.6 Corpuscular g/dl (32.0-37. Hemoglobin Conc 0) ent Red Cell 13.3 Distribution % (11.5-14.5) Width Platelet Count 256 10^3/UL (140-4 15) Mean Platelet 11.5 Volume fl (7.4-10.4) Immature 0.400 Granulocytes % % (0.001-0.429 ) Neutrophils % 58.0 % (39.0-77.0) Lymphocytes % 25.2 % (15.0-51.0) Monocytes % 8.9 % (0.0-11.0) Eosinophils % 6.9 % (0.0-7.0) Basophils % 0.6 % (0.0-2.0) Nucleated Red 0.0 Blood Cells % /100WBC (0.0-0 .0) Immature 0.030 Granulocytes # 10^3/ul (0.0-0 .031) Neutrophils # 4.7 10^3/ul (1.6-7 .5) Lymphocytes # 2.0 10^3/ul (0.8-2 .9) Monocytes # 0.7 10^3/ul (0.3-0 .9) Eosinophils # 0.6 10^3/ul (0.0-0 .5) Basophils # 0.1 10^3/ul (0.0-0 .1) Nucleated Red 0.0 Blood Cells # 10^3/ul (0.0-0 .0) Sodium Level 137 mmol/L (135-14 4) Potassium 4.2 Level mmol/L (3.5-5. 1) Chloride Level 105 mmol/L (97-110 ) Carbon Dioxide 25 Level mmol/L (21-31) Anion Gap 7 (5-13) Blood Urea 21 Nitrogen mg/dl (7-20) Creatinine 1.09 mg/dl (0.61-1. 24) Est Glomerular mL/min (>60) Filtrat Rate mL/min Glucose Level 166 mg/dl (70-220) Calcium Level 8.6 mg/dl (8.4-10. 2) Total 0.6 Bilirubin mg/dl (0.2-1.3 ) Direct 0.00 Bilirubin mg/dl (0.00-0. 20) Indirect 0.6 Bilirubin mg/dl (0-1.1) Aspartate Amino 32 Transf (AST/SGO IU/L (15-46) T) Alanine 23 Aminotransferas IU/L (13-69) e (ALT/SGPT) Alkaline 116 Phosphatase IU/L (42-121) Total Protein 6.7 g/dl (6.1-8.1) Albumin 3.4 g/dl (3.3-4.9) Globulin 3.30 g/dl (1.3-3.2) Albumin/Globuli 1.03 n Ratio Test 08/18/18 07:49 08/18/18 12:28 Bedside 156 119 Glucose mg/dL (70-220) mg/dL (70-220) WENDY CASTREJON V. SUPERINTENDENT RECREATION Aug 18, 2018 14:22
[2018-08-18 15:15] VITALS: BP 141/70; PULSE 71; RESP 17
[2018-08-18] MEDS: ACETAMINOPHEN 325 MG TAB PO PRN (15:29)
--- NOTE | 2018-08-18 16:01 | CONS ---
Assessment/Plan Assessment/Plan Assessment/Plan (Recall) 78 M c/ cerebrovascular risk factors, who presents for evaluation of headache and dizziness.. The clinical picture is most ominously concerning for posterior circulation stroke.. Basilar migraine is possible... Hypertensive urgency is additionally considered.. OSH Head CT was reportedly without obvious acute intracranial pathology OSH CTA Head and Neck were reportedly normal Repeat Head CT is stable from prior.. TTE was unrevealing MRI brain is contraindicated 2/2 pacemaker LDL 120; A1C 7.9% RPR neg ESR 28 P: Cont asa/lipitor daily Continue low-dose meclizine prn Other medical management per primary (avoid Triptans, Ergotamines) PT/OT/ST as necessary Neurologically cleared for d/c Consultation Date/Type/Reason Admit Date/Time Aug 16, 2018 at 14:18 Type of Consult Neurology Reason for Consultation dizziness, headache Requesting Provider: SUNNI RAMOS Date/Time of Note DATE: 08/18/18 TIME: 16:00 24 HR Interval Summary Free Text/Dictation Continues acute care Exam/Review of Systems Exam Vitals Vital Signs Date Temp Pulse Resp B/P (MAP) Pulse Ox O2 O2 Flow FiO2 Time Delivery Rate 08/18/18 98.1 71 17 141/70 95 15:15 (93) Intake and Output 08/17/18 08/17/18 08/18/18 1515:00 23:00 07:00 IntakeIntake Total 600 ml 240 ml OutputOutput Total 200 ml 250 ml 550 ml BalanceBalance 400 ml -10 ml -550 ml Results Result Diagram: 08/18/18 0520 08/18/18 0520 Results 24hrs Laboratory Tests Test 08/17/18 16:59 08/17/18 22:25 08/18/18 03:24 08/18/18 05:20 Bedside Glucose 231 H 335 H 171 White Blood Count 8.1 Red Blood Count 4.54 L Hemoglobin 14.0 Hematocrit 41.7 L Mean Corpuscular 91.9 Volume Mean Corpuscular 30.8 Hemoglobin Mean Corpuscular 33.6 Hemoglobin Concent Red Cell 13.3 Distribution Width Platelet Count 256 Mean Platelet Volume 11.5 H Immature 0.400 Granulocytes % Neutrophils % 58.0 Lymphocytes % 25.2 Monocytes % 8.9 Eosinophils % 6.9 Basophils % 0.6 Nucleated Red Blood 0.0 Cells % Immature 0.030 Granulocytes # Neutrophils # 4.7 Lymphocytes # 2.0 Monocytes # 0.7 Eosinophils # 0.6 H Basophils # 0.1 Nucleated Red Blood 0.0 Cells # Sodium Level 137 Potassium Level 4.2 Chloride Level 105 Carbon Dioxide Level 25 Anion Gap 7 Blood Urea Nitrogen 21 H Creatinine 1.09 Est Glomerular Filtrat Rate mL/min Glucose Level 166 Calcium Level 8.6 Total Bilirubin 0.6 Direct Bilirubin 0.00 Indirect Bilirubin 0.6 Aspartate Amino 32 Transf (AST/SGOT) Alanine 23 Aminotransferase (AL T/SGPT) Alkaline Phosphatase 116 Total Protein 6.7 Albumin 3.4 Globulin 3.30 H Albumin/Globulin 1.03 Ratio Test 08/18/18 07:49 08/18/18 12:28 Bedside Glucose 156 119 Medications Medication Current Medications IV Flush (NS 3 ml) 3 ml PER PROTOCOL IV ; Start 08/15/18 at 22:00 Ondansetron HCl (Zofran Inj) 4 mg Q6H PRN IV NAUSEA/VOMITING; Start 08/15/18 at 22:00 Acetaminophen (Tylenol Tab) 650 mg Q6H PRN PO .PAIN 1-3 OR TEMP Last administered on 08/18/18 15:29; Admin Dose 650 MG; Start 08/15/18 at 22:00 Docusate Sodium (Colace) 100 mg Q12H PRN PO .CONSTIPATION Last administered on 08/18/18 09:39; Admin Dose 100 MG; Start 08/15/18 at 22:00 Bisacodyl (Dulcolax) 5 mg DAILY PRN PO .CONSTIPATION; Start 08/15/18 at 22:00 Aspirin (Halfprin) 81 mg DAILY PO Last administered on 08/18/18 09:33; Admin Dose 81 MG; Start 08/16/18 at 13:30 Atorvastatin Calcium (Lipitor) 40 mg HS PO Last administered on 08/17/18 22:33; Admin Dose 40 MG; Start 08/16/18 at 21:00 Meclizine HCl (Antivert) 12.5 mg TID PO Last administered on 08/18/18 15:27; Admin Dose 12.5 MG; Start 08/16/18 at 21:00 Atenolol (Tenormin) 50 mg DAILY PO Last administered on 08/18/18 09:34; Admin Dose 50 MG; Start 08/17/18 at 09:00 Benazepril HCl (Lotensin) 20 mg DAILY PO Last administered on 08/18/18 09:34; Admin Dose 20 MG; Start 08/17/18 at 09:00 Insulin Glargine (Lantus) 10 units QHS SC Last administered on 08/17/18 22:35; Admin Dose 10 UNITS; Start 08/16/18 at 21:00 Diagnostic Test (Pha) (Accu-Chek) 1 ea 02 XX Last administered on 08/17/18 02:00; Admin Dose 1 EA; Start 08/17/18 at 02:00 Insulin Aspart (Novolog Insulin Pen) 4 unit WITH MEALS SC Last administered on 08/18/18 12:42; Admin Dose 4 UNIT; Start 08/16/18 at 18:00 Insulin Aspart (Novolog Insulin Pen) NOVOLOG *MILD* ALGORITHM WITH MEALS BEDTI AR SC Last administered on 08/18/18 07:55; Admin Dose 1 UNIT; Start 08/16/18 at 18:00 LAYO RODRIGUEZ Aug 18, 2018 16:01
== END 2018-08-18 16:20 | disposition home health service (06) | DRG 66 ==
LOC: INTOOBSV 20:20 → 6WM 20:20 → OBSVTOIN 08-16 14:18
PROVIDERS: ADMIT Internal Medicine; ATTEND Internal Medicine
DX: I63.9 Cerebral infarction, unspecified (principal); I10 Essential (primary) hypertension; E11.8 Type 2 diabetes mellitus with unspecified complications; Z95.0 Presence of cardiac pacemaker
CPT/HCPCS: 70450; 71045; 80053; 80061; 82306; 82962; 83036; 83735; 84443; 85025; 85651; 86592; 93306; 93880; 97116; 97161; 97530; G0378; J1815; J1885; J3475